=== PATIENT | male | born 1995 | race Caucasian/White ===

== ENCOUNTER 2018-06-27 18:53 | Emergency (ER) | payer OTHER ==
[~2018-06-27] VITALS: Ht 182.9 cm; Wt 167.0 kg
--- NOTE | 2018-06-27 19:28 | ECGEPIP ---
Stationary ECG Study [facility] - ED Test Date: 2018-06-27 Pat Name: BRAYAN FRANKEL Department: Room: - Gender: M [employer]: : 1995 Requested By: PARVEZ TAYLOR Order Number: [id number] Reading MD: Terry Garcia Measurements Intervals [place] Rate: 80 P: 61 IA: 131 QRS: 93 QRSD: 120 T: 50 QT: 358 QTc: 415 Interpretive Statements SINUS RHYTHM WITH SINUS ARRHYTHMIA BORDERLINE RIGHT AXIS DEVIATION MODERATE INTRAVENTRICULAR CONDUCTION DELAY NO PRIORS FOR COMPARISON Electronically Signed On 06-27-2018 19:28:24 EDT by Terry Garcia
[2018-06-27 19:42] LABS: BASO % 0.5 % (0.0-1.0); EOS # 0.3 10^3/uL (0.0-0.50); EOS % 3.9 % (0.0-3.0); HEMATOCRIT 42.9 % (42.0-52.0); HEMOGLOBIN 14.5 g/dl (13.5-17.5); LYMPH # 1.7 10^3/uL (1.5-6.5); LYMPH % 20.1 % (24.0-44.0); MEAN CORPUSCULAR HEMOGLOBIN 29.2 pg (27.0-33.0); MEAN CORPUSCULAR HGB CONC 33.8 g/dl (32.0-36.5); MEAN CORPUSCULAR VOLUME 86.5 fl (80.0-96.0); MONO # 1.1 10^3/uL (0.0-0.8); MONO % 12.5 % (0.0-5.0); NEUTROPHILS # 5.4 10^3/uL (1.8-7.7); NEUTROPHILS % 62.8 % (36.0-66.0); PLATELET COUNT, AUTOMATED 241 10^3/uL (150-450); RED BLOOD COUNT 4.96 10^6/uL (4.30-6.10); WHITE BLOOD COUNT 8.6 10^3/uL (4.0-10.0)
--- NOTE | 2018-06-27 19:42 | REP ---
Chest x-ray: Two views. History: Cough. Shortness of breath. Findings: The lungs are symmetrically aerated and clear. There is an infiltrate behind the heart on the frontal view in the left lower lobe. On lateral film is felt to be overlying the spine. It is compatible with pneumonia. Remaining lung khan are clear. Pleural angles are sharp. Heart size is normal. Pulmonary vasculature is not increased. Impression: Left lower lobe pneumonia. Electronically Signed by Audi Brown MD 06/27/2018 07:34 P
[2018-06-27 19:58] LABS: BLOOD UREA NITROGEN 11 MG/DL (7-18); CALCIUM LEVEL 9.2 MG/DL (8.5-10.1); CARBON DIOXIDE LEVEL 27 MEQ/L (21-32); CHLORIDE LEVEL 107 MEQ/L (98-107); GLOMERULAR FILTRATION RATE > 60.0 (>60); GLUCOSE, FASTING 97 MG/DL (70-100); SODIUM LEVEL 141 MEQ/L (136-145)
[2018-06-27] MEDS ORDERED: ISOVUE-370 76% 100ML VIAL (Q9967) As Ordered ONE (20:27)
--- NOTE | 2018-06-27 21:27 | REPVR ---
EXAM: CT Angiography Chest With Contrast EXAM DATE/TIME: 06/27/2018 8:43 PM CLINICAL HISTORY: 23 years old, male; Abnormal findings; Abnormal diagnostic tests; Elevated d-dimer; Additional info: Hemoptysis; SOB; Elevated dimer; R/O pe TECHNIQUE: Imaging protocol: Axial computed tomographic angiography images of the chest with intravenous contrast using CT angiography protocol. Coronal and sagittal reformatted images were created and reviewed. 3D rendering: MIP reconstructed images were created and reviewed. Radiation optimization: All CT scans at this facility use at least one of these dose optimization techniques: automated exposure control; mA and/or kV adjustment per patient size (includes targeted exams where dose is matched to clinical indication); or iterative reconstruction. Contrast material: ISOVUE 370; Contrast volume: 75 ml; Contrast route: IV; COMPARISON: CR Chest, 2 view PA, Lat 06/27/2018 7:27 PM FINDINGS: Pulmonary arteries: Normal. No pulmonary emboli. Aorta: Normal. No aortic aneurysm. No aortic dissection. Lungs: Patchy consolidation noted in the superior segment of the left lower lobe. Small nodular foci noted in the lateral basal segment of the left lower lobe. Scattered pleural-based nodular opacities noted in the right lower lobe along its dependent surface. Pleural space: Normal. No pneumothorax. No pleural effusion. Heart: Normal. No cardiomegaly. No pericardial effusion. Lymph nodes: Unremarkable. No enlarged lymph nodes. Bones/joints: Unremarkable. No acute fracture. Soft tissues: Bilateral perihilar soft tissue thickening IMPRESSION: 1. No pulmonary embolism. 2. Consolidation noted predominantly within the superior segment of the left lower lobe. Small nodular foci of airspace disease noted in the right lung base as well Electronically signed by: Maxine Null On 06/27/2018 21:26:44 PM
[2018-06-27] MEDS ORDERED: LEVA750T7 PO (21:40)
[2018-06-27] MEDS ORDERED: LevoFLOXacin 750 MG TABLET PO ONE (21:45)
[2018-06-27 22:00] VITALS: BP 132/71
== END 2018-06-27 22:02 | disposition home or self-care (01) ==
LOC: M ED 18:53
DX: J18.1 Lobar pneumonia, unspecified organism (principal); F17.210 Nicotine dependence, cigarettes, uncomplicated; Z82.49 Family history of ischemic heart disease and other diseases of the circulatory system
CPT/HCPCS: 36415; 71046; 71275; 80048; 85025; 85379; 93005; 99284; Q9967

== ENCOUNTER 2018-11-23 19:18 | Emergency (ER) | payer OTHER ==
[~2018-11-23] VITALS: Ht 182.9 cm; Wt 86.3 kg
[~2018-11-23 19:18] MED LIST: LEVA750T7 PO
[2018-11-23] MEDS ORDERED: PSEUDOEPHEDRINE 30 MG TAB PO STA (21:16)
[2018-11-23] MEDS ORDERED: ALBUTEROL SULFATE 2.5 MG/0.5 ML INH NEB SOLN NEB ONE (21:30)
[2018-11-23] MEDS ORDERED: IBUPROFEN 600 MG TAB PO ONE (21:30)
[2018-11-23 21:32] LABS: INFLUENZA A AMPLIFICATION NEGATIVE (NEGATIVE); INFLUENZA B AMPLIFICATION NEGATIVE (NEGATIVE)
[2018-11-23] MEDS ORDERED: PSEU120T19 PO (22:21)
[2018-11-23] MEDS ORDERED: PROAAER10 INH (22:21)
[2018-11-23] MEDS ORDERED: IBUP-1022 PO (22:21)
[2018-11-23] MEDS ORDERED: ALBUTEROL 90 MCG/ACT 8GM HFA INHALER INH ONE (22:30)
[2018-11-23 22:44] VITALS: BP 153/78
--- NOTE | 2018-11-24 07:58 | REP ---
PA and lateral chest: Comparisons are the PA and lateral chest of 06/27/[address] of 06/27/2018. Lung khan are clear. The previous left lower lobe infiltrate has resolved. The cardiac size is normal. The mina, mediastinum, skeletal structures are unremarkable. Impression: Negative PA and lateral chest. The previous left lower lobe infiltrate has resolved. Electronically Signed by Dominic Summers MD 11/24/2018 07:49 A
== END 2018-11-23 22:51 | disposition home or self-care (01) ==
LOC: M ED 19:18
DX: J06.9 Acute upper respiratory infection, unspecified (principal); R07.89 Other chest pain; Z88.0 Allergy status to penicillin